=== PATIENT | female | born 2000 | race African-American/Black ===

== ENCOUNTER 2019-10-10 16:32 | Emergency (ER) | payer OTHER, SELFPAY ==
--- NOTE | ~2019-10-10 | US_ITS ---
Please refer to ultrasound dated 10/10/2019 for details. Reviewed, dictated and finalized at location A. LLE TEACHER
--- NOTE | ~2019-10-10 | US_ITS ---
EXAMINATION: US OB <=14 wk fetus w TV DATE: 10/10/2019 19:49 INDICATION: . Abdomen pain. TECHNIQUE: Real-time transabdominal and transvaginal obstetric ultrasound. FINDINGS: No prior studies The uterus measures 7.9 x 4.3 x 6.2 cm. There are twin living intrauterine pregnancies with separate gestational sacs. The crown rump length measurements correspond to 7 week 2 day gestation for both fe tuses. Fetus a heart rate 149 BPM. Fetus B heart rate 152 BPM. Right ovary contains a 1.6 cm corpus l uteal cyst. There is free fluid in the pelvis. There are follicular changes of the left ovary. IMPRESSION: 1. Twin living intrauterine with estimated gestational age of 7 weeks 2 days (EDC 05/26/2020 ). Reviewed, dictated and finalized at location A. BOILER IMPRESSION: 1. Twin living intrauterine with estimated gestational age of 7 weeks 2 days (EDC 05/26/2020).
[2019-10-10 17:25] VITALS: BP 127/76; PULSE 78; RESP 16; TEMP 37.2; O2SAT 100
--- NOTE | 2019-10-10 17:33 | ECG_ITS ---
Measurements Intervals [place] Rate: 80 P: 55 LA: 187 QRS: 64 QRSD: 74 T: 29 QT: 346 QTc: 401 Interpretive Statements SINUS RHYTHM RSR' IN V1 OR V2, PROBABLY NORMAL VARIANT NONSPECIFIC T-WAVE ABNORMALITY- ANT/INF LEADS BORDERLINE ECG Electronically Signed On 10-11-2019 7:59:34 JUTE BAG CLIPPER by Damir Calderon D.O.
[2019-10-10 18:01] LABS: Basophils Percent Auto 0.6 % (0.2-1.2); Eosinophils Percent Auto 0.6 % (0-4.4); Hematocrit 40.2 % (37.0-47.0); Immature Granulocyte Absolute 0.01 K/mm3 (0.00-0.031); Immature Granulocyte Percent A 0.2 % (0-0.5); Mean Corpuscular HGB Conc 32.3 g/dl (32-36); Mean Corpuscular Volume 83.4 fl (80-100); Mean Platelet Volume 11.6 fl (7.4-10.4); Monocytes Absolute Auto 0.5 K/mm3 (0.1-0.6); Monocytes Percent Auto 9.3 % (2.6-8.5); Neutrophils Absolute Auto 2.7 K/mm3 (1.3-6.7); Neutrophils Percent Auto 56.3 % (45.5-73.1); Platelet Count Result 233 k/mm3 (150-375); Red Blood Count 4.82 M/mm3 (4.2-5.4); Red Cell Distribution Width 13.3 % (11.5-14.5); White Blood Count 4.9 K/mm3 (4.5-10.0)
[2019-10-10 18:15] LABS: Alanine Aminotransferase 9 U/L (4-35); Albumin Level 4.9 g/dL (3.5-5.1); Alkaline Phosphatase 69 U/L (38-126); Aspartate Amino Transferase 21 U/L (14-36); Bilirubin,Total 0.6 mg/dL (0.2-1.3); Blood Urea Nitrogen 7 mg/dL (7-17); Calcium 9.8 mg/dL (8.4-10.2); Carbon Dioxide 21 mmol/L (22-30); Chloride 98 mmol/L (98-107); Estimated CRCL calculation 150 ml/min; Estimated Glomerular Filt Rate > 60; Glucose 77 mg/dL (65-105); Lipase 91 U/L (23-300); Potassium 3.7 mmol/L (3.4-5.0); Sodium 133 mmol/L (137-145)
[2019-10-10 18:27] LABS: Troponin I < 0.012 ng/mL (0.000-0.034)
--- NOTE | 2019-10-10 19:33 | ED.ABDPAIN ---
HPI - Abdominal Pain General Chief Complaint: Abdominal Pain Stated Complaint: abd pain Time Seen by Provider: 10/10/19 19:24 History of Present Illness HPI narrative: The pt is a 19 y/o female who presents to the ED c/o chest pain ABD pain eating worsens pain and intermittent nausea Related Data Allergies Allergy/AdvReac Type Severity Reaction Status Date / Time No Known Allergies Allergy Unverified 04/26/19 19:46 Course Vital Signs Vital signs: Vital Signs Temperature 37.2 C 10/10/19 17:25 Pulse Rate 78 10/10/19 17:25 Respiratory Rate 16 10/10/19 17:25 Blood Pressure 127/76 10/10/19 17:25 Pulse Oximetry 100 10/10/19 17:25 Temperature 37.2 C 10/10/19 17:25 Pulse Rate 78 10/10/19 17:25 Respiratory Rate 16 10/10/19 17:25 Blood Pressure 127/76 10/10/19 17:25 Pulse Oximetry 100 10/10/19 17:25 MDM - Abdominal Pain Lab Data Result diagrams: 10/10/19 17:34 10/10/19 17:35 Labs: Lab Results 10/10/19 10/10/19 10/10/19 Range/Units 17:34 17:34 17:34 WBC 4.9 (4.5-10.0) K/mm3 RBC 4.82 (4.2-5.4) M/mm3 Hgb 13.0 (12.0-15.0) g/dL Hct 40.2 (37.0-47.0) % MCV 83.4 (80-100) fl MCH 27.0 (26-34) pg MCHC 32.3 (32-36) g/dl RDW 13.3 (11.5-14.5) % Plt Count 233 (150-375) k/mm3 MPV 11.6 H (7.4-10.4) fl Immature Gran % (Auto) 0.2 (0-0.5) % Neut % (Auto) 56.3 (45.5-73.1) % Lymph % (Auto) 33.0 (18.3-44.2) % [place] % (Auto) 9.3 H (2.6-8.5) % Eos % (Auto) 0.6 (0-4.4) % Baso % (Auto) 0.6 (0.2-1.2) % Lymph # (Auto) 1.60 (0.9-3.2) K/mm3 [place] # (Auto) 0.5 (0.1-0.6) K/mm3 Eos # (Auto) 0.0 (0-0.3) K/mm3 Baso # (Auto) 0.0 (0.0-0.1) K/mm3 Abs Immat Gran (auto) 0.01 (0.00-0.031) K/mm3 Absolute Neuts (auto) 2.7 (1.3-6.7) K/mm3 Absolute Nucleated RBC 0.0 (0.0-0.012) K/mm3 Nucleated RBC % 0.0 (0.0-0.2) % Sodium (137-145) mmol/L Potassium (3.4-5.0) mmol/L Chloride (98-107) mmol/L Carbon Dioxide (22-30) mmol/L BUN (7-17) mg/dL Creatinine (0.7-1.0) mg/dL Estim Creat Clear Calc ml/min Estimated GFR (59 - ) Glucose (65-105) mg/dL Calcium (8.4-10.2) mg/dL Total Bilirubin (0.2-1.3) mg/dL AST (14-36) U/L ALT (4-35) U/L Alkaline Phosphatase (38-126) U/L Troponin I Total Protein (6.3-8.2) g/dL Albumin (3.5-5.1) g/dL Lipase (23-300) U/L Beta HCG, Quant 183827.00 mIU/ML Blood Type A Positive Doses of RhIg Required 0 10/10/19 10/10/19 Range/Units 17:34 17:35 WBC (4.5-10.0) K/mm3 RBC (4.2-5.4) M/mm3 Hgb (12.0-15.0) g/dL Hct (37.0-47.0) % MCV (80-100) fl MCH (26-34) pg MCHC (32-36) g/dl RDW (11.5-14.5) % Plt Count (150-375) k/mm3 MPV (7.4-10.4) fl Immature Gran % (Auto) (0-0.5) % Neut % (Auto) (45.5-73.1) % Lymph % (Auto) (18.3-44.2) % [place] % (Auto) (2.6-8.5) % Eos % (Auto) (0-4.4) % Baso % (Auto) (0.2-1.2) % Lymph # (Auto) (0.9-3.2) K/mm3 [place] # (Auto) (0.1-0.6) K/mm3 Eos # (Auto) (0-0.3) K/mm3 Baso # (Auto) (0.0-0.1) K/mm3 Abs Immat Gran (auto) (0.00-0.031) K/mm3 Absolute Neuts (auto) (1.3-6.7) K/mm3 Absolute Nucleated RBC (0.0-0.012) K/mm3 Nucleated RBC % (0.0-0.2) % Sodium 133 L (137-145) mmol/L Potassium 3.7 (3.4-5.0) mmol/L Chloride 98 (98-107) mmol/L Carbon Dioxide 21 L (22-30) mmol/L BUN 7 (7-17) mg/dL Creatinine 0.50 L (0.7-1.0) mg/dL Estim Creat Clear Calc 150 ml/min Estimated GFR > 60 (59 - ) Glucose 77 (65-105) mg/dL Calcium 9.8 (8.4-10.2) mg/dL Total Bilirubin 0.6 (0.2-1.3) mg/dL AST 21 (14-36) U/L ALT 9 (4-35) U/L Alkaline Phosphatase 69 (38-126) U/L Troponin I Cancelled < 0.012 Total Protein 9.0 H (6.3-8.2) g/dL Albumin 4.9 (3.5-5.1) g/dL Lipase 91 (23-300) U/L Beta HCG, Qu
--- NOTE | 2019-10-10 19:36 | ED.CHESTPAIN ---
HPI - Chest Pain General Chief Complaint: Abdominal Pain Stated Complaint: abd pain Time Seen by Provider: 10/10/19 19:24 Source: patient Mode of arrival: ambulatory Limitations: no limitations History of Present Illness HPI narrative: The pt is a 19 y/o female who presents to the ED c/o 01/17 midsternal nonradiating CP onset 2 days ago. Pt states that her pain has felt sharp. She states that eating seems to worsen her pain and make her nauseous. Pt notes that she has experienced intermittent lower ABD pain for one week. Pt notes that she had a positive test at urgent care, and her last period was on 08/19/19. MD complaint: chest pain Onset (ago): day(s) (2) Pain location: other (Midsternal) Pain radiation: none Pain scale (0-10): 5 Quality: sharp Exacerbating factors: eating Associated symptoms: nausea (When eating) and other (Intermittent lower ABD pain (Onset 1 week ago)) Related Data Allergies Allergy/AdvReac Type Severity Reaction Status Date / Time No Known Allergies Allergy Unverified 04/26/19 19:46 Review of Systems Review of Systems: Narrative: Review of Systems Cardiovascular: Positive for sharp midsternal chest pain. Gastrointestinal: Positive for lower ABD pain onset one week ago and nausea when eating. All systems reviewed & are unremarkable except as noted in HPI and below PMFSH Past Medical History Medical History (Updated 10/11/19 @ 13:38 by Muriel Scales MD) Healthy adult Surgical History Surgical History (Updated 10/10/19 @ 19:40 by Ferny Burr) No history of previous surgery Social History Social History (Updated 10/10/19 @ 19:41 by Ferny Burr) Smoking status: Never smoker Exam Narrative: Exam Narrative: Constitutional: Appears well-developed. No distress. HENT: Head: Normocephalic. Nose: Nose normal. Mouth/Throat: Oropharynx is clear and moist. Eyes: Conjunctiva are normal. Neck: Normal range of motion. Neck supple. Cardiovascular: Normal rate and regular rhythm. Pulmonary/Chest: Effort normal and breath sounds normal. Abdominal: Soft. There is no tenderness. Musculoskeletal: Normal range of motion. No edema. Neurological: Alert and oriented to person, place, and time. Skin: Skin is warm. No pallor. Psychiatric: Normal mood and affect. Course Vital Signs Vital signs: Vital Signs Temperature 37.2 C 10/10/19 17:25 Pulse Rate 78 10/10/19 17:25 Respiratory Rate 16 10/10/19 17:25 Blood Pressure 127/76 10/10/19 17:25 Pulse Oximetry 100 10/10/19 17:25 Temperature 36.7 C 10/10/19 22:15 Pulse Rate 80 10/10/19 22:15 Respiratory Rate 12 10/10/19 22:15 Blood Pressure 117/99 H 10/10/19 22:15 Pulse Oximetry 97 10/10/19 22:15 MDM - Chest Pain Lab Data Result diagrams: 10/10/19 17:34 10/10/19 17:35 Labs: Lab Results 10/10/19 10/10/19 10/10/19 Range/Units 17:34 17:34 17:34 WBC 4.9 (4.5-10.0) K/mm3 RBC 4.82 (4.2-5.4) M/mm3 Hgb 13.0 (12.0-15.0) g/dL Hct 40.2 (37.0-47.0) % MCV 83.4 (80-100) fl MCH 27.0 (26-34) pg MCHC 32.3 (32-36) g/dl RDW 13.3 (11.5-14.5) % Plt Count 233 (150-375) k/mm3 MPV 11.6 H (7.4-10.4) fl Immature Gran % (Auto) 0.2 (0-0.5) % Neut % (Auto) 56.3 (45.5-73.1) % Lymph % (Auto) 33.0 (18.3-44.2) % [place] % (Auto) 9.3 H (2.6-8.5) % Eos % (Auto) 0.6 (0-4.4) % Baso % (Auto) 0.6 (0.2-1.2) % Lymph # (Auto) 1.60 (0.9-3.2) K/mm3 [place] # (Auto) 0.5 (0.1-0.6) K/mm3 Eos # (Auto) 0.0 (0-0.3) K/mm3 Baso # (Auto) 0.0 (0.0-0.1) K/mm3 Abs Immat Gran (auto) 0.01 (0.00-0.031) K/mm3 Absolute Neuts (auto) 2.7 (1.3-6.7) K/mm3 Absolute Nucleated RBC 0.0 (0.0-0.012) K/mm3 Nucleated RBC % 0.0 (0.0-0.2) % Sodium (137-145) mmol/L Potassium (3.4-5.0) mmol/L Chloride (98-107) mmol/L Carbon Dioxide (22-30) mmol/L BUN (7-17) mg/dL Creati
[2019-10-10 19:45] VITALS: BP 115/82; PULSE 79; RESP 12; TEMP 36.6; O2SAT 100
[2019-10-10] MEDS: FAMOTIDINE 20 MG TABLET PO (19:57)
--- NOTE | 2019-10-10 20:30 | PC.NURSE ---
Pt shelly butler. times for blood unsuccessful. phlebotomy called. EDP notified.
--- NOTE | 2019-10-10 21:09 | PC.NURSE ---
Lab unsuccessful at obtaining ts confirmation. EDP notified
[2019-10-10 21:19] LABS: Add Urine Microscopic? YES; Appearance Urine Clear (Clear); Bacteria Urine Trace /hpf; Bilirubin Urine Negative (Negative); Blood Urine Negative (Negative); Color Urine Amber (Yellow); Glucose Urine UA Negative (Negative); Ketones Urine 2+ mg/dL (Negative); Leukocyte Esterase Ur Negative LEU/UL (Negative); Mucus Urine Heavy /lpf; Nitrate Urine Negative (Negative); Protein Urine 1+ mg/dL (Negative); Squamous Epithelial Cell Urine Few /hpf (Few)
[2019-10-10 21:20] LABS: Specific Grav Ur 1.035 (1.001-1.035)
[2019-10-10 21:31] LABS: Troponin I < 0.012 ng/mL (0.000-0.034)
[2019-10-10 22:15] VITALS: BP 117/99; PULSE 80; RESP 12; TEMP 36.7; O2SAT 97
== END 2019-10-10 22:15 | disposition home or self-care (01) ==
PROVIDERS: Emergency Provider Emergency Medicine
DX: O26.891 Other specified pregnancy related conditions, first trimester (principal); R07.9 Chest pain, unspecified; R10.2 Pelvic and perineal pain; O99.611 Diseases of the digestive system complicating pregnancy, first trimester; K21.9 Gastro-esophageal reflux disease without esophagitis; Z3A.01 Less than 8 weeks gestation of pregnancy; O30.001 Twin pregnancy, unspecified number of placenta and unspecified number of amniotic sacs, first trimester
CPT/HCPCS: 36415; 76801; 76802; 76817; 80053; 81001; 81025; 83690; 84484; 84702; 85025; 93005; 99284; A9270

== ENCOUNTER 2020-03-19 21:52 | Emergency (ER) | payer OTHER, SELFPAY ==
[2020-03-19 21:54] VITALS: BP 138/82; PULSE 101; RESP 22; TEMP 36.6; O2SAT 100
[2020-03-19 23:59] VITALS: PULSE 90
--- NOTE | 2020-03-20 00:18 | ED.GENADULT ---
HPI - General Adult General Chief complaint: Chest Pain Stated complaint: chest pressure, covid + Time Seen by Provider: 03/20/20 00:03 History of Present Illness HPI narrative: Patient presents with known COVID infection. She was previously given an inhaler. She said she just feels discomfort in her chest. She tried Tylenol and it did not help much. She has not tried ibuprofen. Her oxygen is 100%. She came by [employer] and said she was going to call over to take her home. She denies chance of . Does not take prescription medicine. She is never had a surgery. She does not smoke cigarette, she does drink alcohol, he denies marijuana. Onset (ago): day(s) Related Data Allergies Allergy/AdvReac Type Severity Reaction Status Date / Time No Known Allergies Allergy Unverified 04/26/19 19:46 Review of Systems Review of Systems: Narrative: CONSTITUTIONAL: Denies fever, chills, or sweats. EYES: Denies visual changes, redness, or discharge. ENT: Denies rhinorrhea, congestion, sore throat, or otalgia. CARDIOVASCULAR: He has chest pain, right not palpitations, or edema. RESPIRATORY: Denies cough or dyspnea. GASTROINTESTINAL: Denies abdominal pain, nausea, vomiting, or diarrhea. GENITOURINARY: Denies dysuria or hematuria. SKIN: Denies rash or itching. MUSCULOSKELETAL: Denies back pain, joint pain, or myalgia. NEUROLOGIC: Denies headache, numbness, or weakness. PSYCHIATRIC: Denies anxiety or depression. [facility] Past Medical History Medical History (Updated 03/20/20 @ 00:20 by Tonya Law MD) COVID-19 Healthy adult Surgical History Surgical History No history of previous surgery Social History Social History (Updated 03/20/20 @ 00:20 by Tonya Law MD) Smoking status: Never smoker Alcohol intake: current Substance use: never Gender identity (if verbalized by the patient): Female Exam Narrative: Exam Narrative: GENERAL: Well-appearing, well-nourished, and in no acute distress. HEAD: Normocephalic, atraumatic. EYES: PERRLA and EOMI. ENT: Nares clear, no rhinorrhea or epistaxis. Mucous membranes moist. NECK: Supple. CHEST: Clear to auscultation. No respiratory distress, but slightly increased respiratory rate. HEART: Regular rate and rhythm. No murmur heard. Normal peripheral pulses. ABDOMEN: Soft, nontender, nondistended, normal active bowel sounds. EXTREMITIES: Normal range of motion. No edema. SKIN: Warm, dry, no rash. NEURO: No focal deficits. Alert and oriented x3. PSYCH: Normal mood and affect. Course Vital Signs Vital signs: Vital Signs Temperature 97.9 F 03/19/20 21:54 Pulse Rate 101 H 03/19/20 21:54 Respiratory Rate 22 H 03/19/20 21:54 Blood Pressure 138/82 03/19/20 21:54 Pulse Oximetry 100 03/19/20 21:54 Temperature 97.9 F 03/19/20 21:54 Pulse Rate 90 03/19/20 23:59 Respiratory Rate 22 H 03/19/20 21:54 Blood Pressure 138/82 03/19/20 21:54 Pulse Oximetry 100 03/19/20 21:54 Medical Decision Making Medical Records Medical records reviewed: Yes I reviewed the patient's medical records. Vital Signs Vital Signs: Vital Signs Temperature 97.9 F 03/19/20 21:54 Pulse Rate 101 H 03/19/20 21:54 Respiratory Rate 22 H 03/19/20 21:54 Blood Pressure 138/82 03/19/20 21:54 Pulse Oximetry 100 03/19/20 21:54 Temperature 97.9 F 03/19/20 21:54 Pulse Rate 90 03/19/20 23:59 Respiratory Rate 22 H 03/19/20 21:54 Blood Pressure 138/82 03/19/20 21:54 Pulse Oximetry 100 03/19/20 21:54 Discharge Plan Discharge Clinical Impression: COVID-19 Patient Disposition: Home, Self-Care Condition: Stable Instructions: COVID-19 (Coronavirus Disease 2019) (ED) Additional Instructions: Try ibuprofen for your discomfort. Follow-up/Referrals: Марина Olmos MD [Physician] - (Call for an appointment after your COVID quarantine.) PHYSICIAN,NUTTER UP [Primary Care Provider] -
[2020-03-20] MEDS: IBUPROFEN 600 MG TABLET PO (00:45)
[2020-03-20 00:46] VITALS: BP 128/70; PULSE 72; RESP 18; O2SAT 98
== END 2020-03-20 00:47 | disposition home or self-care (01) ==
PROVIDERS: Emergency Provider Emergency Medicine
DX: U07.1 COVID-19 (principal)
CPT/HCPCS: 99282; A9270

== ENCOUNTER 2020-10-12 17:18 | Emergency (ER) | payer OTHER, SELFPAY ==
--- NOTE | ~2020-10-12 | XR_ITS ---
EXAMINATION: XR chest 2V 10/12/2020 18:08 INDICATION: Right-sided chest pain and dizziness PROCEDURE: 2 view chest COMPARISON: No prior studies for comparison. FINDINGS: The lungs are clear. The cardiomediastinal silhouette is within normal limits. There are no pleural effusions. There is no pneumothorax suspected. IMPRESSION: 1: NO ACUTE CARDIOPULMONARY DISEASE. Reviewed, dictated and finalized at location A. LANE FLIGHT ATTENDANT
[2020-10-12 17:21] VITALS: BP 135/84; PULSE 81; RESP 18; TEMP 36.9; O2SAT 100
--- NOTE | 2020-10-12 17:38 | ECG_ITS ---
Measurements Intervals [place] Rate: 88 P: 50 LA: 187 QRS: 59 QRSD: 72 T: 57 QT: 354 QTc: 430 Interpretive Statements SINUS RHYTHM BASELINE ARTIFACT- I, III, AVL NORMAL ECG Electronically Signed On 10-13-2020 6:59:02 CARE TRAINER by Damir Calderon D.O.
[2020-10-12 17:46] LABS: Basophils Percent Auto 0.7 % (0.2-1.2); Eosinophils Absolute Auto 0.1 K/mm3 (0-0.3); Eosinophils Percent Auto 2.5 % (0-4.4); Hematocrit 36.7 % (37.0-47.0); Hemoglobin 11.8 g/dL (12.0-15.0); Immature Granulocyte Absolute 0.01 K/mm3 (0.00-0.031); Immature Granulocyte Percent A 0.2 % (0-0.5); Lymphocytes Absolute Auto 1.73 K/mm3 (0.9-3.2); Lymphocytes Percent Auto 39.1 % (18.3-44.2); Mean Corpuscular HGB Conc 32.2 g/dl (32-36); Mean Corpuscular Hemoglobin 27.3 pg (26-34); Mean Platelet Volume 10.8 fl (7.4-10.4); Monocytes Absolute Auto 0.4 K/mm3 (0.1-0.6); Monocytes Percent Auto 8.1 % (2.6-8.5); Neutrophils Absolute Auto 2.2 K/mm3 (1.3-6.7); Neutrophils Percent Auto 49.4 % (45.5-73.1); Platelet Count Result 254 k/mm3 (150-375); Red Blood Count 4.32 M/mm3 (4.2-5.4); Red Cell Distribution Width 14.1 % (11.5-14.5); White Blood Count 4.4 K/mm3 (4.5-10.0)
--- NOTE | 2020-10-12 17:53 | ED.CHESTPAIN ---
HPI - Chest Pain General Chief Complaint: Chest Pain Stated Complaint: chest pain Time Seen by Provider: 10/12/20 17:44 Related Data Home Medications Medication Instructions Recorded Confirmed No Home Medications 10/12/20 10/12/20 Allergies Allergy/AdvReac Type Severity Reaction Status Date / Time No Known Allergies Allergy Verified 10/12/20 17:26 [facility] Past Medical History Medical History (Updated 03/20/20 @ 00:20 by Tonya Law MD) COVID-19 Healthy adult Surgical History Surgical History No history of previous surgery Social History Social History (Updated 03/20/20 @ 00:20 by Tonya Law MD) Smoking status: Never smoker Alcohol intake: current Substance use: never Gender identity (if verbalized by the patient): Female Course Vital Signs Vital signs: Vital Signs Temperature 36.9 C 10/12/20 17:21 Pulse Rate 81 10/12/20 17:21 Respiratory Rate 18 10/12/20 17:21 Blood Pressure 135/84 10/12/20 17:21 Pulse Oximetry 100 10/12/20 17:21 Temperature 36.9 C 10/12/20 17:21 Pulse Rate 81 10/12/20 17:21 Respiratory Rate 18 10/12/20 17:21 Blood Pressure 135/84 10/12/20 17:21 Pulse Oximetry 100 10/12/20 17:21 MDM - Chest Pain Lab Data Result diagrams: 10/12/20 17:40 10/12/20 17:40 Labs: Lab Results 10/12/20 10/12/20 10/12/20 Range/Units 17:40 17:40 17:40 WBC 4.4 L (4.5-10.0) K/mm3 RBC 4.32 (4.2-5.4) M/mm3 Hgb 11.8 L (12.0-15.0) g/dL Hct 36.7 L (37.0-47.0) % MCV 85.0 (80-100) fl MCH 27.3 (26-34) pg MCHC 32.2 (32-36) g/dl RDW 14.1 (11.5-14.5) % Plt Count 254 (150-375) k/mm3 MPV 10.8 H (7.4-10.4) fl Immature Gran % (Auto) 0.2 (0-0.5) % Neut % (Auto) 49.4 (45.5-73.1) % Lymph % (Auto) 39.1 (18.3-44.2) % [place] % (Auto) 8.1 (2.6-8.5) % Eos % (Auto) 2.5 (0-4.4) % Baso % (Auto) 0.7 (0.2-1.2) % Lymph # (Auto) 1.73 (0.9-3.2) K/mm3 [place] # (Auto) 0.4 (0.1-0.6) K/mm3 Eos # (Auto) 0.1 (0-0.3) K/mm3 Baso # (Auto) 0.0 (0.0-0.1) K/mm3 Abs Immat Gran (auto) 0.01 (0.00-0.031) K/mm3 Absolute Neuts (auto) 2.2 (1.3-6.7) K/mm3 Absolute Nucleated RBC 0.0 (0.0-0.012) K/mm3 Nucleated RBC % 0.0 (0.0-0.2) % PT Pending INR Pending APTT Pending Sodium Pending Potassium Pending Chloride Pending Carbon Dioxide Pending Anion Gap Pending BUN Pending Creatinine Pending Estim Creat Clear Calc Pending Estimated GFR Pending Glucose Pending Calcium Pending Troponin I Pending Discharge Plan Discharge Prescriptions: No Action No Home Medications RF: 0
[2020-10-12 17:58] LABS: Anion Gap 8 mmol/L (8-16); Blood Urea Nitrogen 9 mg/dL (7-17); Calcium 9.3 mg/dL (8.4-10.2); Carbon Dioxide 24 mmol/L (22-30); Chloride 107 mmol/L (98-107); Estimated CRCL calculation 120 ml/min; Estimated Glomerular Filt Rate > 60; Glucose 104 mg/dL (65-105); Potassium 3.9 mmol/L (3.4-5.0); Sodium 139 mmol/L (137-145)
[2020-10-12 18:09] LABS: Prothrombin Time 13.5 Seconds (11.1-14.7)
[2020-10-12 18:10] LABS: Troponin I < 0.012 ng/mL (0.000-0.034)
[2020-10-12 18:11] LABS: Partial Thromboplastin Time 31.3 SECONDS (22.3-36.8)
--- NOTE | 2020-10-12 18:19 | ED.CHESTPAIN ---
HPI - Chest Pain General Chief Complaint: Chest Pain Stated Complaint: chest pain Time Seen by Provider: 10/12/20 17:44 History of Present Illness HPI narrative: Intermittent chest tightness for the past week. Became worse last night. Feels like sore muscle. She did recently start exercising. She became concerned when she noted that she was also getting sob with exertion. No pain at this time. No fever, chills, dyspnea at rest. calf pain/swelling. Related Data Home Medications Medication Instructions Recorded Confirmed No Home Medications 10/12/20 10/12/20 Allergies Allergy/AdvReac Type Severity Reaction Status Date / Time No Known Allergies Allergy Verified 10/12/20 17:26 Review of Systems Review of Systems: All systems reviewed & are unremarkable except as noted in HPI and below Constitutional: Constitutional: Denies chills and Denies fever(s) Cardiovascular: Cardiovascular: Reports chest pain and Denies radiating jaw, neck or arm pain Respiratory: Respiratory: Reports dyspnea on exertion Gastrointestinal: Gastrointestinal: Denies nausea and Denies vomiting Neurologic: Denies confusion, Reports dizziness and Denies weakness [facility] Past Medical History Medical History (Updated 10/13/20 @ 00:00 by Mahesh Cheung) COVID-19 Healthy adult Surgical History Surgical History No history of previous surgery Social History Social History (Updated 03/20/20 @ 00:20 by Tonya Law MD) Smoking status: Never smoker Alcohol intake: current Substance use: never Gender identity (if verbalized by the patient): Female Exam Const: General: healthy appearing, no acute distress and alert Orientation/consciousness: patient oriented x3 HENMT: Head: normal to inspection Neck: Neck: normal visual inspection and no lymphadenopathy Chest: Chest palpation & inspection: tenderness pectoral muscle bilaterally Resp: Effort & Inspection: normal respiratory effort Auscultation: clear to auscultation bilaterally, no rales, no rhonchi and no wheezes Cardio: Jugular venous distension: no JVD Rate: regular rate Rhythm: regular rhythm Heart sounds: no murmurs GI: Inspection: non-distended GI Palp: Yes Soft to palpation and No Tenderness to palpation present (GI) Skin: General skin exam: normal color Neuro: General: patient oriented x3, moves all extremities, no focal motor deficits and CN's II-XI intact bilaterally Speech: normal speech Gait exam (Neuro): Normal gait present Extrem: General: normal to inspection and no edema Psych: Appearance: well kempt Affect: normal affect Course Vital Signs Vital signs: Vital Signs Temperature 36.9 C 10/12/20 17:21 Pulse Rate 81 10/12/20 17:21 Respiratory Rate 18 10/12/20 17:21 Blood Pressure 135/84 10/12/20 17:21 Pulse Oximetry 100 10/12/20 17:21 Temperature 36.9 C 10/12/20 17:21 Pulse Rate 78 10/12/20 18:40 Respiratory Rate 12 10/12/20 18:20 Blood Pressure 117/81 10/12/20 18:20 Pulse Oximetry 100 10/12/20 18:20 MDM - Chest Pain Differential Diagnosis Differential diagnosis: Likely atypical chest pain and other (musculoskeletal pain) Medical Records Data Attestation: I reviewed the patient's medical records. Lab Data Attestation: I reviewed the patient's lab results. Result diagrams: 10/12/20 17:40 10/12/20 17:40 Labs: Lab Results 10/12/20 10/12/20 10/12/20 Range/Units 17:40 17:40 17:40 WBC 4.4 L (4.5-10.0) K/mm3 RBC 4.32 (4.2-5.4) M/mm3 Hgb 11.8 L (12.0-15.0) g/dL Hct 36.7 L (37.0-47.0) % MCV 85.0 (80-100) fl MCH 27.3 (26-34) pg MCHC 32.2 (32-36) g/dl RDW 14.1 (11.5-14.5) % Plt Count 254 (150-375) k/mm3 MPV 10.8 H (7.4-10.4) fl Immature Gran % (Auto) 0.2 (0-0.5) % Neut % (Auto) 49.4 (45.5-73.1) % Lymph % (Auto) 39.1 (18.3-44.2) % [place] % (Auto) 8.1
[2020-10-12 18:20] VITALS: BP 117/81; RESP 12; O2SAT 100
[2020-10-12] MEDS: ASPIRIN 81 MG CHEWABLE TABLET 324 MG PO (18:23)
[2020-10-12 18:40] VITALS: PULSE 78
== END 2020-10-12 18:41 | disposition home or self-care (01) ==
PROVIDERS: Emergency Medicine; Emergency Provider Emergency Medicine
DX: R07.89 Other chest pain (principal); Z86.16 Personal history of COVID-19
CPT/HCPCS: 36415; 71046; 80048; 84484; 85025; 85610; 85730; 93005; 99284; A9270

== ENCOUNTER 2020-11-09 16:51 | Emergency (ER) | payer OTHER, SELFPAY ==
--- NOTE | ~2020-11-09 | US_ITS ---
EXAMINATION: US pelvic complete w TV DATE: 11/09/2020 18:22 INDICATION: Abnormal uterine bleeding TECHNIQUE: Multiple transabdominal and endovaginal sonographic images of the pelvis were obtained. COMPARISON: None. FINDINGS: The uterus measures 7.0 x 4.1 x 3.9 cm. The endometrial complex measures 5 mm. The right ov [place] measures 3.3 x 2.2 x 2.2 cm. The left ovary measures 3.3 x 1.9 x 3.0 cm. There is normal vascular flow in the ovaries. There is no free fluid in the pelvis. IMPRESSION: 1. No sonographic correlate for the patient's symptoms. Reviewed, dictated and finalized at location A. DESIGNER
[2020-11-09 16:55] VITALS: BP 142/93; PULSE 84; RESP 16; TEMP 36.7; O2SAT 100
--- NOTE | 2020-11-09 17:37 | ED.GENADULT ---
HPI - General Adult General Chief complaint: Unspecified Stated complaint: pregancy symptoms, negative urine and blood test Time Seen by Provider: 11/09/20 17:11 Source: patient Mode of arrival: ambulatory Limitations: no limitations History of Present Illness HPI narrative: This is a 20-year-old female that presents the emergency department for abnormal uterine bleeding. Reports her last menstrual period was September 29. Reports she did have some light spotting a couple of weeks ago. But has not had another actual period. Reports she has been experiencing some pelvic cramping as well. Also reports some breast tenderness. She had negative test at home. Denies fever, vomiting, or dysuria. Related Data Home Medications Medication Instructions Recorded Confirmed No Home Medications 10/12/20 10/12/20 Allergies Allergy/AdvReac Type Severity Reaction Status Date / Time No Known Allergies Allergy Verified 11/09/20 16:59 Review of Systems Review of Systems: Narrative: CONSTITUTIONAL: Denies fever GASTROINTESTINAL: Reports abdominal pain. Denies nausea, vomiting GENITOURINARY: Denies dysuria All systems reviewed & are unremarkable except as noted in HPI and below PMFSH Past Medical History Medical History (Updated 11/09/20 @ 20:34 by Tanya Mesa PA-C) COVID-19 Healthy adult Surgical History Surgical History No history of previous surgery Social History Social History (Updated 03/20/20 @ 00:20 by Tonya Law MD) Smoking status: Never smoker Alcohol intake: current Substance use: never Gender identity (if verbalized by the patient): Female Exam Narrative: Exam Narrative: GENERAL: Well-appearing, well-nourished, and in no acute distress. HEAD: Normocephalic, atraumatic. EYES: EOMI. CHEST: Clear to auscultation. No respiratory distress. No wheezes rales or rhonchi HEART: Regular rate and rhythm. No murmur heard. Normal peripheral pulses. ABDOMEN: Soft, nontender, nondistended, normal active bowel sounds. EXTREMITIES: Normal range of motion. No edema. SKIN: Warm, dry, no rash. NEURO: No focal deficits. Alert and oriented x3. PSYCH: Normal mood and affect PELVIC: Normal external genitalia. Moderate amount of blood in the vaginal vault. Normal appearing cervix. Course Vital Signs Vital signs: Vital Signs Temperature 98.0 F 11/09/20 16:55 Pulse Rate 84 11/09/20 16:55 Respiratory Rate 16 11/09/20 16:55 Blood Pressure 142/93 H 11/09/20 16:55 Pulse Oximetry 100 11/09/20 16:55 Temperature 98.0 F 11/09/20 16:55 Pulse Rate 62 11/09/20 19:00 Respiratory Rate 18 11/09/20 19:00 Blood Pressure 118/74 11/09/20 19:00 Pulse Oximetry 100 11/09/20 19:00 Medical Decision Making MDM Narrative Medical decision making narrative: Patient presents the emergency department for abnormal uterine bleeding. She is afebrile and nontoxic-appearing. Vitals are stable. CBC with mild normocytic anemia with hemoglobin 11.9. Metabolic panel without concerning findings. Bedside test is negative. UA without evidence of infection. Does show blood, likely due to patient being on her cycle. Pelvic ultrasound is without acute findings. Trichomonas was negative. Chlamydia, gonorrhea were sent. Patient will follow-up for results. Patient was updated on case findings. She is stable and felt appropriate for further outpatient evaluation. She was given warnings to return to the ER Vital Signs Vital Signs: Vital Signs Temperature 98.0 F 11/09/20 16:55 Pulse Rate 84 11/09/20 16:55 Respiratory Rate 16 11/09/20 16:55 Blood Pressure 142/93 H 11/09/20 16:55 Pulse Oximetry 100 11/09/20 16:55 Temperature 98.0 F 11/09/20 16:55 Pulse Rate 62 11/09/20 19:00 Respiratory Rate 18 11/09/20 19:00 Blood Pressure 118/74 11/09/20 19:00 Pulse Oximetry 100 11/09/20 19:00 Lab Data Lab results reviewed: Yes I r
[2020-11-09 19:00] VITALS: BP 118/74; PULSE 62; RESP 18; O2SAT 100
[2020-11-09 19:11] LABS: Basophils Percent Auto 0.9 % (0.2-1.2); Eosinophils Absolute Auto 0.1 K/mm3 (0-0.3); Eosinophils Percent Auto 1.3 % (0-4.4); Hemoglobin 11.9 g/dL (12.0-15.0); Immature Granulocyte Absolute 0.01 K/mm3 (0.00-0.031); Immature Granulocyte Percent A 0.2 % (0-0.5); Lymphocytes Absolute Auto 1.34 K/mm3 (0.9-3.2); Mean Corpuscular HGB Conc 31.3 g/dl (32-36); Mean Corpuscular Hemoglobin 26.6 pg (26-34); Mean Corpuscular Volume 84.8 fl (80-100); Mean Platelet Volume 10.8 fl (7.4-10.4); Monocytes Absolute Auto 0.3 K/mm3 (0.1-0.6); Monocytes Percent Auto 7.6 % (2.6-8.5); Neutrophils Absolute Auto 2.7 K/mm3 (1.3-6.7); Platelet Count Result 236 k/mm3 (150-375); Red Blood Count 4.48 M/mm3 (4.2-5.4); Red Cell Distribution Width 14.2 % (11.5-14.5); White Blood Count 4.5 K/mm3 (4.5-10.0)
[2020-11-09 19:16] LABS: Add Urine Microscopic? YES; Appearance Urine Clear (Clear); Bilirubin Urine Negative (Negative); Blood Urine 3+ (Negative); Color Urine Yellow (Yellow); Glucose Urine UA Negative (Negative); Ketones Urine Negative (Negative); Leukocyte Esterase Ur Negative LEU/UL (Negative); Mucus Urine Heavy /lpf; Nitrate Urine Negative (Negative); Protein Urine 2+ mg/dL (Negative); RBC Urine >75 /hpf (0-2); Squamous Epithelial Cell Urine Few /hpf (Few); WBC Urine 0-3 /hpf
[2020-11-09 19:23] LABS: Alanine Aminotransferase 12 U/L (4-35); Albumin Level 4.5 g/dL (3.5-5.1); Alkaline Phosphatase 69 U/L (38-126); Anion Gap 7 mmol/L (8-16); Aspartate Amino Transferase 26 U/L (14-36); Bilirubin,Total 0.5 mg/dL (0.2-1.3); Blood Urea Nitrogen 13 mg/dL (7-17); Calcium 9.5 mg/dL (8.4-10.2); Carbon Dioxide 26 mmol/L (22-30); Chloride 105 mmol/L (98-107); Estimated CRCL calculation 119 ml/min; Estimated Glomerular Filt Rate > 60; Glucose 85 mg/dL (65-105); Potassium 4.2 mmol/L (3.4-5.0); Sodium 138 mmol/L (137-145)
[2020-11-09 19:39] LABS: Beta HCG Quantitative < 2.39 mIU/ML
== END 2020-11-09 21:00 | disposition home or self-care (01) ==
PROVIDERS: Physician Assistant; Emergency Provider Emergency Medicine
DX: N93.9 Abnormal uterine and vaginal bleeding, unspecified (principal); Z86.19 Personal history of other infectious and parasitic diseases
CPT/HCPCS: 36415; 76830; 76856; 80053; 81001; 81025; 84702; 85025; 85461; 87070; 87077; 87491; 87591; 87808; 99284